=== PATIENT | female | born 1990 | race Two or more races ===

== ENCOUNTER 2020-01-29 13:15 | Emergency (ER) | payer MEDICAID ==
[~2020-01-29] VITALS: Ht 160 cm; Wt 57.2 kg
--- NOTE | 2020-01-29 14:00 | NUR ---
BIB SELF C/O CHEST PAIN AND SOB STARTED 2 DAYS AGO. PT AAOX4, VSS. RR EVEN & UNLABORED. DENIES DIZZINESS, N/V, WEAKNESS AT THIS TIME. PT SEEN & EVAL'D BY DR. GRANDE. PLACED ON LPTA, NSR. WILL CONTINUE TO MONITOR.
[2020-01-29 14:09] LABS: BASOPHILS % (AUTO) 0.3 % (0.0-2.0); EOSINOPHILS % (AUTO) 0.6 % (0.0-6.0); HEMATOCRIT 41 % (33-45); HEMOGLOBIN 14.1 g/dL (11.5-14.8); LYMPHOCYTES % (AUTO) 28.9 % (20.0-44.0); MEAN CORPUSCULAR HGB CONC 35 g/dl (31.0-36.0); MEAN CORPUSCULAR VOLUME 94 fL (82-100); MONOCYTES # (AUTO) 0.3 /CMM (0.1-1.30); MONOCYTES % (AUTO) 4.3 % (2.0-12.0); NEUTROPHILS # (AUTO) 4.5 /CMM (1.8-8.9); NEUTROPHILS % (AUTO) 65.9 % (43.0-81.0); PLATELET COUNT (AUTO) 260 /CMM (150-450); RED BLOOD CELL COUNT(AUTO) 4.33 MIL/uL (4.0-5.2); WHITE BLOOD COUNT (AUTO) 6.9 K/uL (4.3-11.0)
[2020-01-29 14:18] LABS: CALCIUM, SERUM 9.1 mg/dL (8.5-10.1); CARBON DIOXIDE 27 mmol/L (21-32); CHLORIDE 103 mmol/L (98-107); CREATININE 0.7 mg/dL (0.6-1.3); GLUCOSE 109 mg/dL (74-106); POTASSIUM 3.4 mmol/L (3.5-5.1); SODIUM SERUM 139 mmol/L (136-145); UREA NITROGEN, BLOOD 10 mg/dL (7-18)
[2020-01-29] MEDS ORDERED: MAG HYDROX/AL HYDROX/SIMETH 30 ML UDC ONE (14:27)
[2020-01-29] MEDS ORDERED: LIDOCAINE VISCOUS 2% UD 15 ML UDC ONE (14:27)
[2020-01-29] MEDS ORDERED: ACETAMINOPHEN 325 MG TABLET ONE (14:28)
[2020-01-29] MEDS ORDERED: MAG HYDROX/AL HYDROX/SIMETH 30 ML UDC PO ONE (14:30)
[2020-01-29] MEDS ORDERED: ACETAMINOPHEN 325 MG TABLET PO ONE (14:30)
[2020-01-29] MEDS ORDERED: LIDOCAINE VISCOUS 2% UD 15 ML UDC MM ONE (14:30)
--- NOTE | 2020-01-29 14:40 | NUR ---
MEDICATED PER ERMD ORDER, PT QUAN WELL.
[2020-01-29 15:40] VITALS: BP 118/70
--- NOTE | 2020-01-29 15:41 | NUR ---
Patient discharged to home in stable condition. Written and verbal after care instructions given. Patient verbalizes understanding of instruction. IV removed. Catheter intact and site benign. Pressure and 4x4 applied to site. No bleeding noted.
== END 2020-01-29 15:42 | disposition home or self-care (01) ==
LOC: ER 13:22
DX: R07.89 Other chest pain (principal); R06.02 Shortness of breath; Z88.6 Allergy status to analgesic agent
CPT/HCPCS: 36415; 71045-TC; 80048-TC; 84484-TC; 85025-TC

== ENCOUNTER 2021-08-17 22:44 | Emergency (ER) | payer SELFPAY ==
[~2021-08-17] VITALS: Ht 160 cm; Wt 59.0 kg
--- NOTE | 2021-08-17 23:18 | NUR ---
PATIENT BIBSELF C/O LOWER ABD PAIN S/P LIFTING SON, PAIN RAD TO LEFT SIDE. PATIENT IS A/O X 4, RR EVEN AND UNLABORED, NO SOB NOTED. PATIENT CONNECTED TO CARDIAC AND POX MONITOR.
[2021-08-18 00:21] LABS: BILIRUBIN,URINE NEGATIVE (NEGATIVE); COLOR,URINE YELLOW (YELLOW); LEUKOCYTE ESTERASE ,URINE NEGATIVE (NEGATIVE); NITRITE, URINE NEGATIVE (NEGATIVE); PROTEIN,URINE NEGATIVE (NEGATIVE); UGLUCOSE NEGATIVE (NEGATIVE); UROBILINOGEN,URINE 0.2 EU/dL (0.2)
[2021-08-18] MEDS ORDERED: KETOROLAC TROMETHAMINE 15 MG/ML VIAL ONE (00:57)
[2021-08-18] MEDS ORDERED: KETOROLAC TROMETHAMINE INJ 30 MG/ML VIAL IV ONE (01:00)
[2021-08-18 01:17] LABS: BASOPHILS % (AUTO) 0.5 % (0.0-2.0); EOSINOPHILS % (AUTO) 2.9 % (0.0-6.0); HEMATOCRIT 43 % (33-45); HEMOGLOBIN 14.4 g/dL (11.5-14.8); LYMPHOCYTES # (AUTO) 3.7 K/uL (0.8-4.8); LYMPHOCYTES % (AUTO) 49.2 % (20.0-44.0); MEAN CORPUSCULAR HGB CONC 34 g/dl (31.0-36.0); MEAN CORPUSCULAR VOLUME 95 fL (82-100); MONOCYTES # (AUTO) 0.4 K/uL (0.1-1.30); MONOCYTES % (AUTO) 4.8 % (2.0-12.0); NEUTROPHILS # (AUTO) 3.2 K/uL (1.8-8.9); NEUTROPHILS % (AUTO) 42.6 % (43.0-81.0); PLATELET COUNT (AUTO) 298 K/uL (150-450); RED BLOOD CELL COUNT(AUTO) 4.47 MIL/uL (4.0-5.2); WHITE BLOOD COUNT (AUTO) 7.5 K/uL (4.3-11.0)
[2021-08-18 01:39] LABS: CALCIUM, SERUM 9.8 mg/dL (8.5-10.1); CREATININE 0.7 mg/dL (0.6-1.3); POTASSIUM 3.5 mmol/L (3.5-5.1)
--- NOTE | 2021-08-18 01:54 | NUR ---
US TECH AT BED SIDE
[2021-08-18] MEDS ORDERED: SIMETHICONE 80 MG TAB.CHEW ONE (02:22)
[2021-08-18] MEDS ORDERED: SIMETHICONE 80 MG TAB.CHEW PO ONE ×2 (02:30)
[2021-08-18] MEDS ORDERED: SIME125C81 PO (02:32)
--- NOTE | 2021-08-18 02:56 | NUR ---
Patient discharged to home in stable condition. Written and verbal after care instructions given. Patient verbalizes understanding of instruction. Pt ambulatory with a steady gait
[2021-08-18 02:57] VITALS: BP 118/67
== END 2021-08-18 03:00 | disposition home or self-care (01) ==
LOC: ER 22:51
DX: R14.0 Abdominal distension (gaseous) (principal); D25.9 Leiomyoma of uterus, unspecified; Z88.6 Allergy status to analgesic agent; Z60.2 Problems related to living alone
CPT/HCPCS: 36415; 76856; 80048; 81003; 84703; 85025; 96374; 99284; J1885